=== PATIENT | male | born 1950 | race Caucasian/White ===

== ENCOUNTER → 2021-01-05 | Outpatient (CLI) | payer MEDICARE, OTHER ==
--- NOTE | 2021-01-05 08:39 | KCIC ---
EXAM: Lumbar spine MRI without contrast. HISTORY: Radiculopathy. TECHNIQUE: Multiplanar, multisequence magnetic resonance imaging of the lumbar spine was performed wi thout contrast. COMPARISON: None. FINDINGS: There is lumbar levoscoliosis centered at L3-L4. There is slight retrolisthesis of L2 on L3 and L3 on L4 and L5 and S1. There is degenerative endplate remodeling with disc space narrowing, ost eophytosis and Schmorl's node formation primarily along the right aspect of L3-L4. This corresponds w ith the level of maximum scoliotic concavity. There is multilevel endplate remodeling. There are mult iple endplate Schmorl's nodes. There is multilevel disc desiccation. There are few osseous hemangioma s. There is no suspicious osseous lesion. There is no acute or subacute fracture. The conus terminate s at L1-L2. At L1-L2, there is a shallow posterior central disc protrusion superimposed on a disc bulge and endpl ate remodeling. There is no stenosis. At L2-L3, there is a shallow left lateral recess to foraminal disc protrusion superimposed on a disc bulge and endplate remodeling. There is mild retrolisthesis. There is mild right foraminal stenosis. At L3-L4, there is a right foraminal to lateral disc protrusion superimposed on a right lateral predo minant disc bulge and endplate osteophytosis. There is mild right facet arthropathy. There is mild re trolisthesis. There is severe right and mild left foraminal stenosis. There is moderate central canal stenosis. At L4-L5, there is a left lateral recess to extra foraminal disc protrusion superimposed on a left la teral predominant disc bulge and endplate osteophytosis. There is mild bilateral facet arthropathy. T here is moderate left foraminal stenosis. There is narrowing of the left lateral recess and mild cent ral canal stenosis. At L5-S1, there is a left foraminal to lateral disc protrusion superimposed on a left lateral predomi nant disc bulge and endplate osteophytosis. There is mild retrolisthesis. There is mild to moderate r ight and moderate left foraminal stenosis. IMPRESSION: Multilevel degenerative change involving the lumbar spine, described in detail above. Thi s results in stenosis at the aforementioned levels. The central canal stenosis is most significant at L3-L4. The right foraminal stenosis is most significant at L3-L4 and a left foraminal stenosis is mo st significant at L4-L5 and L5-S1. Electronically signed by: Flakita Parker MD (01/05/2021 8:37 AM) [id number]
== END ==
LOC: KCIC MRI 07:52
PROVIDERS: ATTEND Internal Medicine
DX: M51.17 Intervertebral disc disorders with radiculopathy, lumbosacral region (principal); M47.26 Other spondylosis with radiculopathy, lumbar region; M48.07 Spinal stenosis, lumbosacral region; M43.17 Spondylolisthesis, lumbosacral region; M51.46 Schmorl's nodes, lumbar region; M41.86 Other forms of scoliosis, lumbar region; M25.78 Osteophyte, vertebrae; D18.09 Hemangioma of other sites
CPT/HCPCS: 72148